=== PATIENT | female | born 1985 | race Hispanic/Latino ===

== ENCOUNTER → 2022-03-16 09:45 | Outpatient (CLI) | payer OTHER, SELFPAY ==
--- NOTE | 2022-03-16 09:49 | DI.RAD.S_ITS ---
PROCEDURE: XR LUMBAR SPINE MIN 4V INDICATIONS: BACK PAIN TECHNIQUE: 5 views of the lumbar spine were acquired, including bilateral oblique views. COMPARISON: [facility], CT, CT ABDOMEN PELVIS WITH CONTRAST, 10/24/2019, 14:15. FINDINGS: Bones: 5 nonrib-bearing vertebrae are present. There is normal bony alignment. There is a compression fracture at L1 with approximately 60% vertebral body height loss. This is unchanged from the study dated October 24, 2019. No suspicious bony lesions. Soft tissues: Overlying bowel gas pattern is normal. No suspicious soft tissue calcifications. Oblique images: No pars defects. IMPRESSION: 1. Stable L1 compression deformity. No pars interarticularis defects. Dictated by: Emmanuelle Gonzalez M.D. on 03/16/2022 at 11:46 Approved by: Emmanuelle Gonzalez M.D. on 03/16/2022 at 11:48
== END ==
PROVIDERS: Referring Provider Physical Medicine & Rehabilitation; Visit Provider Physical Medicine & Rehabilitation
DX: M48.56XS Collapsed vertebra, not elsewhere classified, lumbar region, sequela of fracture (principal); M54.9 Dorsalgia, unspecified; M47.816 Spondylosis without myelopathy or radiculopathy, lumbar region; Z78.9 Other specified health status
CPT/HCPCS: 72110; 99215

== ENCOUNTER → 2023-10-26 13:24 | Outpatient (CLI) | payer OTHER, SELFPAY | PROVIDERS: Family Provider Emergency Medicine; PCP Emergency Medicine; Referring Provider Emergency Medicine; Visit Provider Emergency Medicine | DX: S43.401D Unspecified sprain of right shoulder joint, subsequent encounter (principal); S43.401A Unspecified sprain of right shoulder joint, initial encounter; S39.012A Strain of muscle, fascia and tendon of lower back, initial encounter | CPT/HCPCS: 95886; 95910 ==

== ENCOUNTER → 2024-03-28 14:58 | Outpatient (CLI) | payer OTHER, SELFPAY | LOC: PHYS 14:58 | PROVIDERS: Family Provider Emergency Medicine; PCP Emergency Medicine; Referring Provider Emergency Medicine; Visit Provider Emergency Medicine | DX: S39.012A Strain of muscle, fascia and tendon of lower back, initial encounter (principal); S43.401D Unspecified sprain of right shoulder joint, subsequent encounter; S43.401A Unspecified sprain of right shoulder joint, initial encounter | CPT/HCPCS: 95886; 95909 ==